=== PATIENT | male | born 1990 | race Two or more races ===

== ENCOUNTER 2018-11-14 19:10 | Emergency (ER) | payer SELFPAY ==
[~2018-11-14] VITALS: Ht 160 cm; Wt 86.2 kg
--- NOTE | 2018-11-14 19:30 | NUR ---
PT PRESENTED TO THE ER WITH A C/O ABD PAIN. PT STATED THAT IT STARTED EARLIER TODAY. PT DENIES VOMITTING, DIARRHEA, CONSTIPATION. PT IS C/O NAUSEA. WILL CONTINUE TO MONITOR THE PT.
[2018-11-14 19:53] LABS: BASOPHILS % (AUTO) 0.4 % (0.0-2.0); EOSINOPHILS % (AUTO) 0.4 % (0.0-6.0); HEMATOCRIT 45 % (39-51); HEMOGLOBIN 15.3 g/dL (13.5-17.5); LYMPHOCYTES % (AUTO) 17.6 % (20.0-44.0); MEAN CORPUSCULAR HGB CONC 34 g/dl (31.0-36.0); MEAN CORPUSCULAR VOLUME 83 fL (80-96); MONOCYTES # (AUTO) 0.7 /CMM (0.1-1.30); MONOCYTES % (AUTO) 6.2 % (2.0-12.0); NEUTROPHILS # (AUTO) 8.6 /CMM (1.8-8.9); NEUTROPHILS % (AUTO) 75.4 % (43.0-81.0); PLATELET COUNT (AUTO) 316 /CMM (150-450); WHITE BLOOD COUNT (AUTO) 11.4 K/uL (4.3-11.0)
[2018-11-14] MEDS ORDERED: ONDANSETRON HCL/PF 4 MG/2 ML VIAL ONE (19:57)
[2018-11-14] MEDS ORDERED: MORPHINE SULFATE INJ 4 MG/ML DISP.SYRIN ONE (19:57)
[2018-11-14] MEDS ORDERED: MORPHINE SULFATE INJ 2 MG/ML DISP.SYRIN IV ONE (20:00)
[2018-11-14] MEDS ORDERED: ONDANSETRON HCL/PF 4 MG/2 ML VIAL IVP ONE (20:00)
[2018-11-14 20:02] LABS: CALCIUM, SERUM 9.1 mg/dL (8.5-10.1); CREATININE 0.9 mg/dL (0.6-1.3); POTASSIUM 3.8 mmol/L (3.5-5.1)
[2018-11-14 20:07] LABS: ALBUMIN 3.9 g/dL (3.4-5.0); BILIRUBIN,DIRECT 0.2 mg/dL (0.0-0.2); BILIRUBIN,TOTAL 1.5 mg/dL (0.2-1.0); TOTAL PROTEIN, SERUM 7.7 g/dL (6.4-8.2)
--- NOTE | 2018-11-14 20:14 | NUR ---
PT REC'D MEDICATION ORDERED. PT IS ON THE MONITOR AND CONTINUOUS PULSE OX.
--- NOTE | 2018-11-14 21:08 | NUR ---
DR LADD IS AT THE BEDSIDE SPEAKING TO THE PT.
--- NOTE | 2018-11-14 21:10 | NUR ---
DR LADD IS AT THE BEDSIDE WITH BROOKLYN LOPEZ (VISUAL DESIGNER) SPEAKING TO THE PT.
--- NOTE | 2018-11-14 21:15 | NUR ---
IV removed. Catheter intact and site benign. Pressure and 4x4 applied to site. No bleeding noted.
[2018-11-14 21:25] VITALS: BP 127/76
== END 2018-11-14 21:24 | disposition home or self-care (01) ==
LOC: ER 19:10
DX: K80.20 Calculus of gallbladder without cholecystitis without obstruction (principal)
CPT/HCPCS: 36415; 74176; 76705; 80048; 80076; 83690; 85025; 96374; 96375; 99284; J2270; J2405

== ENCOUNTER 2019-08-17 04:17 | Emergency (ER) | payer MEDICAID ==
[~2019-08-17] VITALS: Ht 167.6 cm; Wt 78.9 kg
[2019-08-17] MEDS ORDERED: MORPHINE SULFATE INJ 4 MG/ML DISP.SYRIN ONE (04:27)
[2019-08-17] MEDS ORDERED: MORPHINE SULFATE INJ 2 MG/ML DISP.SYRIN IV ONE (04:30)
--- NOTE | 2019-08-17 04:35 | NUR ---
PT CAME TO ER BED 2 C/O ABDOMINAL PAIN ON UPPER RIGHT QUADRANT RADIATING TO THE LEFT UPPER QUADRANT SINCE LAST NIGHT. PAIN 12/25. AAOX4. NO SOB. BREATHING EVENLY AND UNLABORED ON ROOM AIR. CONNECTED TO MONITOR.
[2019-08-17 04:41] LABS: BASOPHILS # (AUTO) 0.1 /CMM (0.0-0.2); BASOPHILS % (AUTO) 0.7 % (0.0-2.0); EOSINOPHILS % (AUTO) 1.3 % (0.0-6.0); HEMATOCRIT 44 % (39-51); HEMOGLOBIN 14.9 g/dL (13.5-17.5); LYMPHOCYTES # (AUTO) 2.7 /CMM (0.8-4.8); LYMPHOCYTES % (AUTO) 32.7 % (20.0-44.0); MEAN CORPUSCULAR HGB CONC 34 g/dl (31.0-36.0); MEAN CORPUSCULAR VOLUME 84 fL (80-96); MONOCYTES # (AUTO) 0.5 /CMM (0.1-1.30); MONOCYTES % (AUTO) 5.5 % (2.0-12.0); NEUTROPHILS % (AUTO) 59.8 % (43.0-81.0); PLATELET COUNT (AUTO) 327 /CMM (150-450); RED BLOOD CELL COUNT(AUTO) 5.27 MIL/uL (4.5-6.0); WHITE BLOOD COUNT (AUTO) 8.4 K/uL (4.3-11.0)
--- NOTE | 2019-08-17 04:56 | NUR ---
US AT BEDSIDE
[2019-08-17 04:57] LABS: ALBUMIN 3.8 g/dL (3.4-5.0); BILIRUBIN,DIRECT 0.2 mg/dL (0.0-0.2); BILIRUBIN,TOTAL 0.9 mg/dL (0.2-1.0); CALCIUM, SERUM 8.8 mg/dL (8.5-10.1); CREATININE 1.1 mg/dL (0.6-1.3); POTASSIUM 3.5 mmol/L (3.5-5.1); TOTAL PROTEIN, SERUM 7.4 g/dL (6.4-8.2)
--- NOTE | 2019-08-17 05:44 | NUR ---
IV removed. Catheter intact and site benign. Pressure and 4x4 applied to site. No bleeding noted. Patient discharged to home in stable condition. Written and verbal after care instructions given. Patient verbalizes understanding of instruction.
[2019-08-17 05:46] VITALS: BP 113/73
== END 2019-08-17 06:04 | disposition home or self-care (01) ==
LOC: ER 04:19
DX: K80.20 Calculus of gallbladder without cholecystitis without obstruction (principal)
CPT/HCPCS: 36415; 76705; 80048; 80076; 83690; 85025; 96374; 99284; J2270

== ENCOUNTER 2021-10-21 00:01 | Emergency (ER) | payer MEDICAID ==
[~2021-10-21] VITALS: Ht 167.6 cm; Wt 88.9 kg
[2021-10-21] MEDS ORDERED: IBUPROFEN 400 MG TABLET PO ONE (02:30)
--- NOTE | 2021-10-21 02:41 | NUR ---
BIBS. AAOX4. NOT IN RESP DISTRESS. AMBUALTORY. CAME IN FOR RIGHT UPPER QUADRANT ABDOMINAL PAIN X TODAY. DENIES N/V. PT ALSO COMPLAINTS OF INTERMITENT HEADACHES THAT OCCURS IN THE MORNINGS WITH NASAL CONGESTION. NOT HAVING HEADACHE AT THIS TIME. MD WAS AT THE BEDSIDE FOR EVAL. ORDERS RECEIVED, NOTED AND CARRIED OUT.
[2021-10-21] MEDS ORDERED: IBUPROFEN 400 MG TABLET ONE (02:44)
[2021-10-21 02:49] LABS: BASOPHILS # (AUTO) 0.1 K/uL (0.0-0.2); BASOPHILS % (AUTO) 1.2 % (0.0-2.0); HEMATOCRIT 49 % (39-51); HEMOGLOBIN 16.8 g/dL (13.5-17.5); LYMPHOCYTES # (AUTO) 3.5 K/uL (0.8-4.8); LYMPHOCYTES % (AUTO) 44.6 % (20.0-44.0); MEAN CORPUSCULAR HGB CONC 34 g/dl (31.0-36.0); MEAN CORPUSCULAR VOLUME 83 fL (80-96); MONOCYTES # (AUTO) 0.5 K/uL (0.1-1.30); MONOCYTES % (AUTO) 6.9 % (2.0-12.0); NEUTROPHILS # (AUTO) 3.6 K/uL (1.8-8.9); NEUTROPHILS % (AUTO) 46.3 % (43.0-81.0); PLATELET COUNT (AUTO) 324 K/uL (150-450); RED BLOOD CELL COUNT(AUTO) 5.88 MIL/uL (4.5-6.0); WHITE BLOOD COUNT (AUTO) 7.8 K/uL (4.3-11.0)
--- NOTE | 2021-10-21 02:50 | NUR ---
left for ct
[2021-10-21 03:08] LABS: ALBUMIN 4.3 g/dL (3.4-5.0); BILIRUBIN,DIRECT 0.3 mg/dL (0.0-0.2); CALCIUM, SERUM 9.2 mg/dL (8.5-10.1); POTASSIUM 3.8 mmol/L (3.5-5.1); TOTAL PROTEIN, SERUM 8.6 g/dL (6.4-8.2)
[2021-10-21 04:00] VITALS: BP 135/74
--- NOTE | 2021-10-21 04:29 | NUR ---
URINE SENT TO LAB
[2021-10-21 04:47] LABS: BILIRUBIN,URINE NEGATIVE (NEGATIVE); COLOR,URINE YELLOW (YELLOW); LEUKOCYTE ESTERASE ,URINE NEGATIVE (NEGATIVE); NITRITE, URINE NEGATIVE (NEGATIVE); PROTEIN,URINE NEGATIVE (NEGATIVE); UGLUCOSE NEGATIVE (NEGATIVE); UROBILINOGEN,URINE 0.2 EU/dL (0.2)
--- NOTE | 2021-10-21 05:17 | NUR ---
Patient discharged to home in stable condition. Written and verbal after care instructions given. Patient verbalizes understanding of instruction.
== END 2021-10-21 05:19 | disposition home or self-care (01) ==
LOC: ER 00:47
DX: R10.9 Unspecified abdominal pain (principal); R79.89 Other specified abnormal findings of blood chemistry; E88.89 Other specified metabolic disorders; R51.9 Headache, unspecified; Z90.49 Acquired absence of other specified parts of digestive tract
CPT/HCPCS: 36415; 70450-TC; 76705-TC; 80048-TC; 80076-TC; 83690-TC; 85025-TC; 85730-TC

== ENCOUNTER 2024-03-05 15:02 | Emergency (ER) | payer MEDICAID ==
[~2024-03-05] VITALS: Ht 165.1 cm; Wt 80.7 kg
[2024-03-05] MEDS ORDERED: ACET-2605 PO (15:58)
[2024-03-05] MEDS ORDERED: IBUP-1955 PO (15:58)
[2024-03-05] MEDS ORDERED: CYCL5TAB PO (15:58)
[2024-03-05] MEDS ORDERED: LIDOCAINE 5% (PATCH) 1 EA PATCH TP ONE (16:08)
[2024-03-05] MEDS ORDERED: ACETAMINOPHEN ES 500 MG TABLET ONE (16:08)
[2024-03-05] MEDS ORDERED: KETOROLAC TROMETHAMINE 15 MG/ML VIAL ONE (16:08)
[2024-03-05] MEDS: ACETAMINOPHEN ES 500 MG TABLET PO ONE (16:10)
[2024-03-05] MEDS: LIDOCAINE 5% (PATCH) 1 EA PATCH TP ONE (16:10)
[2024-03-05] MEDS: KETOROLAC TROMETHAMINE 15 MG/ML VIAL IM ONE (16:10)
[2024-03-05 16:18] VITALS: BP 131/89; TEMP 208.8; O2SAT 99
== END 2024-03-05 16:19 | disposition home or self-care (01) ==
LOC: ER 15:16
DX: M54.59 Other low back pain (principal); Z60.2 Problems related to living alone
CPT/HCPCS: 99283; 96372; J1885

== ENCOUNTER 2024-05-01 20:18 | Emergency (ER) | payer MEDICAID ==
[~2024-05-01] VITALS: Ht 167.6 cm; Wt 63.5 kg
[~2024-05-01 20:18] MED LIST: ACET-2605 PO; CYCL5TAB PO; IBUP-1955 PO
[2024-05-01 21:41] LABS: BASOPHILS % (AUTO) 0.4 % (0.0-2.0); EOSINOPHILS # (AUTO) 0.1 K/uL (0.0-0.7); HEMATOCRIT 45 % (39-51); HEMOGLOBIN 15.1 g/dL (13.5-17.5); LYMPHOCYTES # (AUTO) 2.3 K/uL (0.8-4.8); LYMPHOCYTES % (AUTO) 36.2 % (20.0-44.0); MEAN CORPUSCULAR HEMOGLOBIN 28 PG (26.0-33.0); MEAN CORPUSCULAR HGB CONC 34 g/dl (31.0-36.0); MEAN CORPUSCULAR VOLUME 83 fL (80-96); MONOCYTES # (AUTO) 0.5 K/uL (0.1-1.30); MONOCYTES % (AUTO) 7.6 % (2.0-12.0); NEUTROPHILS # (AUTO) 3.5 K/uL (1.8-8.9); NEUTROPHILS % (AUTO) 54.8 % (43.0-81.0); PLATELET COUNT (AUTO) 308 K/uL (150-450); RED BLOOD CELL COUNT(AUTO) 5.46 MIL/uL (4.5-6.0); RED CELL DISTRIBUTION WIDTH 13.8 % (11.5-15.0); WHITE BLOOD COUNT (AUTO) 6.5 K/uL (4.3-11.0)
[2024-05-01 22:07] LABS: CALCIUM, SERUM 8.7 mg/dL (8.5-10.1); POTASSIUM 3.6 mmol/L (3.5-5.1)
[2024-05-01 22:13] LABS: BILIRUBIN,DIRECT 0.3 mg/dL (0.0-0.2); BILIRUBIN,TOTAL 1.6 mg/dL (0.2-1.0); TOTAL PROTEIN, SERUM 8.1 g/dL (6.4-8.2)
[2024-05-01 22:16] LABS: APPEARANCE,URINE CLEAR (CLEAR); BILIRUBIN,URINE NEGATIVE (NEGATIVE); BLOOD, URINE NEGATIVE Ery/uL (NEGATIVE); COLOR,URINE YELLOW (YELLOW); KETONES,URINE NEGATIVE (NEGATIVE); LEUKOCYTE ESTERASE ,URINE NEGATIVE (NEGATIVE); NITRITE, URINE NEGATIVE (NEGATIVE); PH,URINE 6.5 (5.0-8.0); PROTEIN,URINE NEGATIVE (NEGATIVE); UGLUCOSE NEGATIVE (NEGATIVE)
[2024-05-01] MEDS ORDERED: IBUPROFEN 400 MG TABLET ONE (23:02)
[2024-05-01] MEDS: IBUPROFEN 400 MG TABLET PO ONE (23:13)
[2024-05-01 23:15] VITALS: BP 102/72; TEMP 98.5; O2SAT 100
[2024-05-02 00:43] LABS: ADD URINE CULTURE NO; BACTERIA,URINE Rare /HPF (None Seen); RBC,URINE 0-2 /HPF (0-2); SQUAMOUS EPITHELIAL CELL,UR Rare /HPF (None Seen); WBC,URINE NONE SEEN /HPF (0-3)
== END 2024-05-01 23:16 | disposition home or self-care (01) ==
LOC: ER 20:21
DX: R10.9 Unspecified abdominal pain (principal); K76.0 Fatty (change of) liver, not elsewhere classified; Z79.899 Other long term (current) drug therapy; R03.0 Elevated blood-pressure reading, without diagnosis of hypertension; Z60.2 Problems related to living alone
CPT/HCPCS: 36415; 80048-TC; 80076-TC; 81001; 83690-TC; 85025-TC